=== PATIENT | female | born 1980 | race Caucasian/White ===

== ENCOUNTER 2018-10-28 05:47 | Day surgery (SDC) | payer OTHER ==
[2018-10-27 19:51] VITALS: BMI 18.8
[2018-10-28] MEDS ORDERED: ONDANSETRON 4 MG/2 ML VIAL IVPUSH PRN (10:56)
[2018-10-28] MEDS ORDERED: oxyCODONE HCL 5 MG TABLET PO PRN ×2 (10:56)
[2018-10-28] MEDS ORDERED: LACTATED RINGERS SOLUTION 1,000 ML IV SCH (11:00)
--- NOTE | 2018-10-28 11:39 | HP ---
History & Physical Update - History History: No Change - Physical Physical: No Change - Assessment Assessment: No Change - Plan Plan: No Change (Agree with H&P from 10/23/18, for hysteroscopy, D&C, possible polypectomy)
[2018-10-28] MEDS ORDERED: IBUPROFEN 600 MG TABLET (FP) PO PRN (11:40)
[2018-10-28] MEDS ORDERED: ACETAMINOPHEN 325 MG TABLET (FP) PO PRN (11:40)
[2018-10-28] MEDS ORDERED: PROPOFOL 20 ML ONE ×2 (11:41)
[2018-10-28] MEDS ORDERED: MIDAZOLAM HCL 2 MG/2 ML SINGLE DOSE VIAL ONE (11:41)
[2018-10-28] MEDS ORDERED: LIDOCAINE HCL/PF 2% SDV 5ML VIAL ONE (11:42)
[2018-10-28] MEDS ORDERED: DEXAMETHASONE SOD PHOSPHATE 4 MG/1 ML VIAL ONE (11:44)
[2018-10-28] MEDS ORDERED: KETOROLAC TROMETHAMINE 30 MG/1 ML VIAL ONE (11:44)
[2018-10-28] MEDS ORDERED: MINERAL OIL/PETROLATUM,WHITE 3.5 GM TUBE ONE (13:07)
[2018-10-28 15:38] VITALS: BP 98/55; PULSE 68; TEMP 98.1
--- NOTE | 2018-10-28 20:22 | OP ---
Operative Note - Note: Operative Date: 10/28/18 Pre-Operative Diagnosis: endometrial polyp, menorrhagia Operation: hysteroscopy, D&C, polypectomy Findings: b/l tubal ostea noted Post-Operative Diagnosis: Same as Pre-op Surgeon: Clementine Mina Anesthesiologist/PATENT LEATHER SORTER: Viktoria Snow Anesthesia: General Specimens Removed: endometrial curettings, endometrial polyp Estimated Blood Loss (mls): 5 Operative Report Dictated: Yes
--- NOTE | 2018-10-29 06:40 | OP ---
$$NEEDS REVIEW $$ - inaudible dictation DATE OF OPERATION: 10/28/2018 PREOPERATIVE DIAGNOSES: Abnormal uterine bleeding and endocervical vs. endometrial polyp. POSTOPERATIVE DIAGNOSES: Abnormal uterine bleeding and endocervical vs endometrial polyp. PROCEDURE: Hysteroscopy, dilation and curettage, polypectomy. SURGEON: Clementine Mina DO ANESTHESIA: General by Dr. Viktoria Snow. ESTIMATED BLOOD LOSS: 5 mL. COMPLICATIONS: None. SPECIMENS REMOVED: Include endometrial curettings and endometrial polyp. COUNT: Sponge and instrument count correct at the end of the case. DISPOSITION: Stable to PACU. BRIEF HISTORY AND PROCEDURE: Patient is a 37-year-old female who was seen in the office with complaint of heavy menstrual periods. The patient was diagnosed with an endometrial polyp and elected to undergo a hysteroscopic resection of the polyp in the operating room. Consents for the procedure were signed. She was admitted to [facility] on October 28, 2018. Consents for the procedure were reconfirmed. She was taken back to the operating room, placed in the dorsal lithotomy position, given general anesthesia, prepped and draped in the usual sterile fashion. A hard timeout was performed. A speculum was placed inside the vagina. The anterior lip of the cervix was visualized, grasped and the cervix was dilated to accommodate a diagnostic hysteroscope which was advanced to the fundus of the uterus. Bilateral tubal ostia were appreciated. Polypoid tissue on the anterior portion of the uterus was noted. No discrete uterine polyps were noted. Sharp D & C was completed on all 4 bernstein of the uterus until the polypoid tissue had been removed. All endometrial curettings were sent to Pathology for permanent evaluation. All instruments were removed from the vagina. Minimal bleeding was noted from the cervical os and the tenaculum sites. Patient was awoken from anesthesia and recovering in PACU in stable condition after the procedure. Sponge, needle and instrument count was reported to be correct. CLEMENTINE MINA DO /[id number] MTDD
--- NOTE | 2018-11-03 18:38 | PATH ---
Surgical Pathology Report Patient Name: ALEKS CISNEROS [facility]. Rec. #: [id number] /Age/Gender: 1980 (Age: 37) / F Account: [id number] Location: [facility] SUR[facility] Taken: 10/28/2018 Received: 10/28/2018 Reported: 11/03/2018 Physicians: Clementine Mina M.D. Specimen(s) Received ENDOMETRIAL CURETTINGS Clinical History Endometrial polyp Final Diagnosis ENDOMETRIAL CURETTINGS, POLYPECTOMY, DILATION AND CURETTAGE: POLYPOID FRAGMENTS OF SECRETORY ENDOMETRIUM AND BENIGN CERVICAL TISSUE Electronically Signed Ondina Mckenzie M.D. Gross Description Received in formalin, labeled "endometrial curetting" is a 1.5 x 1 x 0.3 cm aggregate of brown-barr and light barr tissue. Entirely submitted in one cassette. AE/10/30/2018 ebram/10/30/2018
== END 2018-10-28 15:40 | disposition home or self-care (01) ==
LOC: JASU-SURG 05:47
PROVIDERS: ATTEND Obstetrics & Gynecology
PROC: 0UB98ZX Excision of Uterus, Via Natural or Artificial Opening Endoscopic, Diagnostic (ICD-10-PCS; principal; 2018-10-28 11:30)
PROC: 0UDB8ZZ Extraction of Endometrium, Via Natural or Artificial Opening Endoscopic (ICD-10-PCS; 2018-10-28 11:30)
DX: N93.8 Other specified abnormal uterine and vaginal bleeding (principal); N84.0 Polyp of corpus uteri
CPT/HCPCS: 36415; 84702; 86850; 86900; 86901; 88305-TC; 94760